=== PATIENT | female | born 1940 | race Caucasian/White ===

== ENCOUNTER 2016-07-14 14:20 | Emergency (ER) | payer OTHER ==
--- NOTE | 2016-07-14 14:35 | CPEKG ---
Heart Rate: 72 RR Interval: 833 P-R Interval: 160 QRSD Interval: 92 QT Interval: 376 QTC Interval: 412 P Gaffney: 35 QRS Gaffney: 49 T Wave Gaffney: -2 EKG Severity - BORDERLINE ECG - EKG Impression: SINUS RHYTHM EKG Impression: ATRIAL PREMATURE COMPLEX EKG Impression: BORDERLINE T ABNORMALITIES, INFERIOR LEADS Electronically Signed By: Mihaela Marie 14-Jul-2016 16:28:22
[2016-07-14] MEDS ORDERED: NS 500 ML IV ONE (15:05)
[2016-07-14] MEDS ORDERED: ASPIRIN 81 MG CHEWABLE TAB PO ONE (15:05)
--- NOTE | 2016-07-14 15:05 | EDPHY ---
H & P Time Seen by Provider: 07/14/16 14:50 HPI/ROS: CHIEF COMPLAINT: palpitations HISTORY OF PRESENT ILLNESS: Patient is a 76-year-old female with a history of SVT on digoxin and cardia who presents to the emergency department with palpitations. She was told by Dr. Alonzo that she may need an ablation. However , she felt that the digoxin has been working well. The past 2 days she has had intermittent episodes of palpitations. She describes it as a fluttering an extra beats. It is slightly different than her previous episodes of SVT. She has no chest pain. Mild shortness of breath with the episode. No diaphoresis or nausea. She felt lightheaded with 1 of her episodes while driving. She has no leg pain or swelling. No recent travel. The patient also describes dysuria and frequency x1 day. Patient states she has been under an extreme amount of stress due to recent polyp takes. REVIEW OF SYSTEMS: My complete review of systems is negative except as mentioned in the HPI. Past Medical/Surgical History: Includes SVT, high cholesterol Past surgical history: Appendectomy, tonsillectomy Social history: The patient does not smoke. Smoking Status: Never smoked Physical Exam: Vitals noted. Heart rate 100 GENERAL: Well-appearing, in no acute distress, alert. HEENT: Eyes normal to inspection, normal pharynx, no signs of dehydration. NECK: No thyromegaly, no lymphadenopathy, supple. RESPIRATORY: Clear to auscultation bilaterally, no rales, rhonchi or wheezing. CVS: Regular rate and rhythm, no rubs, murmurs, or gallops. ABDOMEN: Soft, nontender, nondistended, no organomegaly. BACK: Normal to inspection, no CVA tenderness. SKIN: Normal color, no rash, warm, dry. No pallor. EXTREMITIES: No pedal edema, no calf tenderness, no Homans sign or cords, no joint swelling. NEURO/PSYCH: Alert and oriented x3, normal mood and affect, normal motor sensory exam. Constitutional: Initial Vital Signs Temperature (C) 36.8 C 07/14/16 14:25 Heart Rate 100 07/14/16 14:25 Respiratory Rate 16 07/14/16 14:25 Blood Pressure 114/83 H 07/14/16 14:25 O2 Sat (%) 92 07/14/16 14:25 O2 Delivery Mode Room Air Allergies/Adverse Reactions: codeine Allergy (Verified 07/14/16 14:23) Home Medications: Medication Instructions Recorded Aspirin 81mg (*) 07/14/16 Cartia Xt 07/14/16 Cephalexin [Keflex (*)] 500 mg PO QID 7 Days 07/14/16 Digoxin 07/14/16 Fish Oil 07/14/16 Glucosamine 07/14/16 Multivitamin 07/14/16 Rosuvastatin Calcium 07/14/16 traZODone 07/14/16 Medical Decision Making - Diagnostics EKG Interpretation: EKG shows normal sinus rhythm, normal rate, normal axis, normal intervals. Atrial premature complex. There are no ST or T-wave abnormalities. EKG is normal as interpreted by me. ED Course/Re-evaluation: In the emergency department I discussed the plan with the patient answered all her questions. IV was placed. Laboratory studies, EKG and chest x-ray were ordered. On recheck the patient was noted to be doing well. She had no complaints of palpitations. Patient was noted to have the positive urine. I discussed this with the patient. She was given ceftriaxone 1 g IV. Patient had a negative troponin. Her digoxin was 0.8. 1600: I discussed this with Dr. Jose Bonds. He recommend the patient receive Cardizem immediate release 30 mg orally. He recommended discharge from the emergency department treatment of UTI. His office will see the patient tomorrow. I discussed the plan with the patient. She was doing well at time of discharge. She had no complaints. On repeat exam she was regular rate rhythm with no rubs murmurs or gallops. Her abdomen was benign. She is given warnings prior to leaving. She will return with worsening symptoms. She will be discharged with Keflex and continue her current medications Differential Diagnosis: My differential includes but is not limited to SVT, AFib, atrial flutter, ventricular tachycardia, ventricular dysrhythmia, electrolyte abnormality, sugar abnormality, digoxin overdose - Data Points Laboratory Results: Laboratory Results 07/14/16 15:00 07/14/16 15:00 07/14/16 15:00 WBC 8.97 10^3/uL (3.80-9.50) RBC 5.58 H 10^6/uL (4.18-5.33) Hgb 16.1 g/dL (12.6-16.3) Hct 48.9 H % (38.0-47.0) MCV 87.6 fL (81.5-99.8) MCH 28.9 pg (27.9-34.1) MCHC 32.9 g/dL (32.4-36.7) RDW 14.1 % (11.5-15.2) Plt Count 249 10^3/uL (150-400) MPV 11.6 fL (8.7-11.7) Neut % (Auto) 66.3 % (39.3-74.2) Lymph % (Auto) 23.5 % (15.0-45.0) [place] % (Auto) 7.0 % (4.5-13.0) Eos % (Auto) 2.2 % (0.6-7.6) Baso % (Auto) 0.7 % (0.3-1.7) Nucleat RBC Rel Count 0.0 % (0.0-0.2) Absolute Neuts (auto) 5.94 10^3/uL (1.70-6.50) Absolute Lymphs (auto) 2.11 10^3/uL (1.00-3.00) Absolute Monos (auto) 0.63 10^3/uL (0.30-0.80) Absolute Eos (auto) 0.20 10^3/uL (0.03-0.40) Absolute Basos (auto) 0.06 10^3/uL (0.02-0.10) Absolute Nucleated RBC 0.00 10^3/uL (0-0.01) Immature Gran % 0.3 % (0.0-1.1) Immature Gran # 0.03 10^3/uL (0.00-0.10) Sodium 144 mEq/L (134-144) Potassium 4.4 mEq/L (3.5-5.2) Chloride 111 H mEq/L (97-110) Carbon Dioxide 23 mEq/l (22-31) Anion Gap 10 mEq/L (8-16) BUN 14 mg/dL (7-23) Creatinine 0.7 mg/dL (0.6-1.0) Estimated GFR > 60 Glucose 104 H mg/dL (70-100) Calcium 9.6 mg/dL (8.5-10.4) Troponin I < 0.012 ng/mL (0-0.034) Urine Color YELLOW Urine Appearance HAZY Urine pH 6.0 (5.0-7.5) Ur Specific [place] 1.012 (1.002-1.030) Urine Protein NEGATIVE (NEGATIVE) Urine Ketones NEGATIVE (NEGATIVE) Urine Blood 3+ H (NEGATIVE) Urine Nitrate NEGATIVE (NEGATIVE) Urine Bilirubin NEGATIVE (NEGATIVE) Urine Urobilinogen NEGATIVE EU (0.2-1.0) Ur Leukocyte Esterase 2+ H (NEGATIVE) Urine RBC 50-182 H /hpf (0-3) Urine WBC 50-182 H /hpf (0-3) Ur Epithelial Cells TRACE /lpf (NONE-1+) Urine Bacteria TRACE H /hpf (NONE SEEN) Ur Culture Indicated? INDICATED H (NI) Urine Glucose NEGATIVE (NEGATIVE) Digoxin 0.8 ng/mL (0.8-2.0) Medications Given: Discontinued Medications Aspirin (Aspirin) 324 mg PO EDNOW ONE Stop: 07/14/16 15:06 Last Admin: 07/14/16 15:16 Dose: 324 mg Sodium Chloride (Ns) 500 mls @ 0 mls/hr IV ONCE ONE PRN Reason: As Directed Stop: 07/14/16 15:06 Last Admin: 07/14/16 15:16 Dose: 500 mls Ceftriaxone Sodium/Dextrose (Rocephin 1 Gm (Premix)) 50 mls @ 100 mls/hr IV EDNOW ONE PRN Reason: Protocol Stop: 07/14/16 16:06 Last Admin: 07/14/16 15:56 Dose: 50 mls Departure - Departure Disposition: Home, Routine, Self-Care Clinical Impression: Palpitations, Urinary tract infection Condition: Good Instructions: Palpitations (ED), Urinary Tract Infection in Women (ED) Additional Instructions: Continue taking medications as directed. Return with worsening symptoms or concerns. You need to be seen by your kidney trimmer's office tomorrow. You can see any provider. I discussed the case with Dr. Jose Bonds in the emergency department. Referrals: CEZAR URIARTE [Primary Care Provider] - As per Instructions Sawyer Alonzo MD [Medical Doctor] - 1 day without fail Prescriptions: Cephalexin [Keflex (*)] 500 mg PO QID 7 Days
[2016-07-14 15:13] LABS: % IMMATURE GRANULYOCYTES 0.3 % (0.0-1.1); ABSOLUTE IMMATURE GRANULOCYTES 0.03 10^3/uL (0.00-0.10); ADD DIFF? NO; ADD MORPH? NO; ADD SCAN? NO; ATYPICAL LYMPHOCYTE FLAG 0 (0-99); FRAGMENT RBC FLAG 0 (0-99); HEMATOCRIT 48.9 % (38.0-47.0); HEMOGLOBIN 16.1 g/dL (12.6-16.3); LEFT SHIFT FLG 0 (0-99); LIPEMIA HEMOLYSIS FLAG 80 (0-99); MEAN CELL HEMOGLOBIN 28.9 pg (27.9-34.1); MEAN CELL HEMOGLOBIN CONCENTR. 32.9 g/dL (32.4-36.7); MEAN CELL VOLUME 87.6 fL (81.5-99.8); MEAN PLATELET VOLUME 11.6 fL (8.7-11.7); PLATELET CLUMPS FLAG 10 (0-99); PLATELET COUNT 249 10^3/uL (150-400); RED BLOOD CELL COUNT 5.58 10^6/uL (4.18-5.33); RED CELL DISTRIBUTION WIDTH 14.1 % (11.5-15.2)
[2016-07-14 15:16] LABS: COLOR YELLOW; LEUKOCYTE ESTERASE,URINE 2+ (NEGATIVE); NITRITE,URINE NEGATIVE (NEGATIVE)
[2016-07-14 15:21] LABS: BACTERIA TRACE /hpf (NONE SEEN); RBC,URINE 50-182 /hpf (0-3); WBC,URINE 50-182 /hpf (0-3)
[2016-07-14 15:22] LABS: ANION GAP 10 mEq/L (8-16); CALCIUM 9.6 mg/dL (8.5-10.4); CARBON DIOXIDE 23 mEq/l (22-31); CHLORIDE 111 mEq/L (97-110); CREATININE 0.7 mg/dL (0.6-1.0); DIGOXIN 0.8 ng/mL (0.8-2.0); GLOMERULAR FILTRATION RATE > 60; GLUCOSE 104 mg/dL (70-100); POTASSIUM 4.4 mEq/L (3.5-5.2); SODIUM 144 mEq/L (134-144)
[2016-07-14 15:31] LABS: TROPONIN I < 0.012 ng/mL (0-0.034)
--- NOTE | 2016-07-14 15:38 | DX ---
PA and lateral chest. Clinical History: Chest Pain Comparison Study: None available. Findings: Minimal linear scarring or atelectasis within the lingula. No focal infiltrate or pleural e ffusion. Heart size is normal.. Moderate degenerative changes within the mid thoracic spine.. Impression: Minimal parenchymal scarring or atelectasis within the lingula. Negative chest.
[2016-07-14] MEDS ORDERED: DILTIAZEM 30 MG TAB PO ONE (16:00)
[2016-07-14 16:23] VITALS: BP 148/81; PULSE 68; RESP 12; TEMP 97.9; O2SAT 94
== END 2016-07-14 16:28 | disposition home or self-care (01) ==
DX: R00.2 Palpitations (principal); N39.0 Urinary tract infection, site not specified; B96.20 Unspecified Escherichia coli [E. coli] as the cause of diseases classified elsewhere; Z79.82 Long term (current) use of aspirin
CPT/HCPCS: 71020; 93005; 96361; 96365; 99285; J0696